=== PATIENT | female | born 1985 | race Caucasian/White ===

== ENCOUNTER 2019-05-24 06:25 | Day surgery (SDC) | payer MEDICAID ==
[2019-05-21 16:14] LABS: BASOPHILS # (AUTO) 0.2 X10'3 (0-0.2); BASOPHILS % (AUTO) 1.5 % (0-1); EOSINOPHILS # (AUTO) 1.2 X10'3 (0-0.9); EOSINOPHILS % (AUTO) 7.6 % (0-6); LYMPHOCYTES # (AUTO) 4.9 X10'3 (1.1-4.8); LYMPHOCYTES % (AUTO) 30.3 % (21-51); MEAN CORPUSCULAR HEMOGLOBIN 24.2 PG (27.0-31.0); MEAN CORPUSCULAR HGB CONC 31.8 g/dL (33.0-36.5); MEAN CORPUSCULAR VOLUME 76.1 FL (78-98); MEAN PLATELET VOLUME 7.3 FL (7.4-10.4); MONOCYTES # (AUTO) 1.1 X10'3 (0-0.9); MONOCYTES % (AUTO) 6.5 % (2-12); NEUTROPHILS # (AUTO) 8.8 X10'3 (1.8-7.7); NEUTROPHILS % (AUTO) 54.1 % (42-75); PRE OP HEMOGLOBIN 12.7 g/dL (12.0-16.0); PRE OP PLATELET COUNT 436 X10'3 (140-440); RED BLOOD COUNT 5.26 X10'6 (4.20-5.60); RED CELL DISTRIBUTION WIDTH 16.8 % (11.5-14.5)
[2019-05-21 16:26] LABS: ALBUMIN/GLOBULIN RATIO 1.2 (1.1-1.5); ALKALINE PHOSPHATASE 78 IU/L (46-116); BLOOD UREA NITROGEN 8 MG/DL (7-18); BUN/CREATININE RATIO 9.4 (6.6-38.0); CALCIUM 8.6 MG/DL (8.5-10.1); CHLORIDE 106 MMOL/L (99-107); CREATININE 0.85 MG/DL (0.40-0.90); PRE OP ALT 23 U/L (30-65); PRE OP ANION GAP 6 (8-16); PRE OP AST 9 U/L (10-37); PRE OP BILIRUB, TOTAL 0.1 MG/DL (0.0-1.0); PRE OP GLUCOSE 95 MG/DL (70-104); PRE OP SODIUM 140 MMOL/L (135-145); TOTAL CARBON DIOXIDE 28.5 MMOL/L (24-32); TOTAL PROTEIN 7.3 G/DL (6.4-8.2); eGFR 77 ML/MIN
[2019-05-21 16:44] LABS: HCG SERUM QL NEGATIVE
[2019-05-24] VITALS (8 sets, daily range): BP systolic 133–155; BP diastolic 73–86
[~2019-05-24] VITALS: Ht 172.7 cm; Wt 95.0 kg
[~2019-05-24 06:25] MED LIST: ALB0.5UD IH; BUDE10.2 INH; DOXY150T3; LORA10TA65 PO; LORA10TA7 PO; albuterol 2.5 MG/3 ML nebule NEB SCH; ceFOXitin 2 GM ADDVANTGE BAG 50 ML IV ONE; famotidine 10mg tablet PO ONE; non-formulary drug (Albuterol Sulfate Nebs* (Proventil Nebs*) 2.5 MG) IH SCH; ringers solution, lacted 1,000 ML IV SCH
[2019-05-24] MEDS ORDERED: BUPIVAcaine/PF 2.5mg/ml (0.25%) 10ml vial ONE (07:06)
[2019-05-24] MEDS ORDERED: ringers solution, lacted 1,000 ML IV SCH (07:59)
[2019-05-24] MEDS ORDERED: meperidine/PF 25mg/ml syringe IV PRN ×3 (08:00)
[2019-05-24] MEDS ORDERED: ondansetron/PF 4mg/2ml inj IV PRN (08:00)
[2019-05-24] MEDS ORDERED: loratadine 10mg tablet PO SCH ×2 (08:00)
[2019-05-24] MEDS ORDERED: ketorolac trometh. 30mg/ml inj. IV ONE (08:00)
[2019-05-24] MEDS ORDERED: budesonide 0.5mg/2ml UD nebule IH SCH (08:00)
[2019-05-24] MEDS ORDERED: proCHLORperazine 10 MG/2 ml inj IV PRN (08:00)
[2019-05-24] MEDS ORDERED: morphine 4 MG/ML inj SYRINge IV PRN ×2 (08:00)
[2019-05-24] MEDS ORDERED: sevoflurane 250ml liquid IH ONE (08:39)
[2019-05-24] MEDS ORDERED: rocuronium 10mg/ml inj IV ONE (08:47)
[2019-05-24] MEDS ORDERED: fentaNYL/PF 50MCG/1 ML 2ML syringe ONE ×2 (08:47→09:18)
[2019-05-24] MEDS ORDERED: midazolam 2 mg/2 ml injection ONE (08:47)
[2019-05-24] MEDS ORDERED: propofol inj 20 ML IV ONE (08:47)
[2019-05-24] MEDS ORDERED: dexamethasone sod phosphate 4mg/ml inj. ONE (09:09)
[2019-05-24] MEDS ORDERED: ondansetron/PF 4mg/2ml inj ONE (09:09)
[2019-05-24] MEDS ORDERED: neostigmine methylsulfate 1 MG/ML 10ml vial ONE (09:27)
[2019-05-24] MEDS ORDERED: BUPIVAcaine/PF 2.5 mg/ml (0.25%) 30ml vial ONE (09:27)
[2019-05-24] MEDS ORDERED: glycopyrrolate 0.2mg/ml inj ONE (09:47)
--- NOTE | 2019-05-24 09:50 | NUR ---
Received from OR via BED , accompanied by Anesthesiologist DR WRIGHT and report given by Anesthesiolgist. PATIENT WAKING UP, DENIES, V/S WNL, NEUROVASCULAR CHECKS INTACT, 20G PIV LUE, SCD ON, DEMABONDED AND PERIPAD WITH SCANT DRAINAGE CDI.
--- NOTE | 2019-05-24 10:50 | NUR ---
PATIENT A&OX4, DENIES PAIN, V/S WNL, NEUROVASCULAR CHECKS INTACT, 20G PIV LUE D/C, SCD OFF, LAP SIGHTS OF ABDOMEN / PERIPAD CDI.. I HAVE REVIEWED D/C INSTRUCTIONS WITH PATIENT AND FAMILY HAVE VERBALIZED UNDERSTANDING.PATIENT WAS D/C HOME WITH ALL BELONGINGS AND FAMILY GAVE TRANSPORT HOME.
== END 2019-05-24 10:50 | disposition home or self-care (01) ==
LOC: PAS 06:25
PROVIDERS: ATTEND Obstetrics & Gynecology Obstetrics
DX: Z30.2 Encounter for sterilization (principal); J45.909 Unspecified asthma, uncomplicated; I10 Essential (primary) hypertension; E66.9 Obesity, unspecified; Z68.33 Body mass index [BMI] 33.0-33.9, adult; F17.210 Nicotine dependence, cigarettes, uncomplicated; Z98.51 Tubal ligation status; Z90.49 Acquired absence of other specified parts of digestive tract; Z98.890 Other specified postprocedural states; Z79.899 Other long term (current) drug therapy; Z87.442 Personal history of urinary calculi
CPT/HCPCS: 36415; 58670; 71046; 80053; 82948; 84703; 85025; 86885; 86900; 86901; J0694; J1100; J1885; J2250; J2405; J2704; J2710; J3010; J3490; J7120; A4618; A7000; J7626

== ENCOUNTER 2023-01-31 06:37 | Emergency (ER) | payer MEDICAID ==
[~2023-01-31] VITALS: Ht 170.2 cm; Wt 90.9 kg
[~2023-01-31 06:37] MED LIST changes: -DOXY150T3; -LORA10TA65 PO; -albuterol 2.5 MG/3 ML nebule NEB SCH; -ceFOXitin 2 GM ADDVANTGE BAG 50 ML IV ONE; -famotidine 10mg tablet PO ONE; -non-formulary drug (Albuterol Sulfate Nebs* (Proventil Nebs*) 2.5 MG) IH SCH; -ringers solution, lacted 1,000 ML IV SCH
[2023-01-31] MEDS ORDERED: ipratropium/albuterol 3ml nebule NEB STA (06:40)
[2023-01-31 06:41] VITALS: TEMP 98.8
[2023-01-31] MEDS ORDERED: methylPREDNISolone sod succ 125mg/2ml vial IV STA (06:48)
[2023-01-31] MEDS ORDERED: normal saline 1000ML IV soln IVB ONE (06:50)
[2023-01-31 07:02] VITALS: PULSE 118; RESP 20; O2SAT 96
[2023-01-31 07:11] VITALS: PULSE 109; RESP 20; O2SAT 99
[2023-01-31] MEDS ORDERED: AZIT-164 PO (10:16)
[2023-01-31] MEDS ORDERED: PRED20TA PO (10:16)
[2023-01-31] MEDS ORDERED: ALBU8HFA PO (10:16)
--- NOTE | 2023-01-31 10:55 | NUR ---
PT PREPARING FOR DISCHARGE. PT STATES SHE HAS HER INHALER AT HOME. PT STATES THAT SHE IS FEELING MUCH BETTER. RN ADVISED PT IF HER SX RETURN TO COME BACK TO ED OR CALL 911 AND SHE VERBALIZED UNDERSTANDING.
[2023-01-31 11:01] VITALS: BP 147/88; PULSE 97; RESP 14; O2SAT 94
== END 2023-01-31 11:12 | disposition home or self-care (01) ==
LOC: ER 06:37
DX: J45.901 Unspecified asthma with (acute) exacerbation (principal); I10 Essential (primary) hypertension; M19.90 Unspecified osteoarthritis, unspecified site; Z88.5 Allergy status to narcotic agent; Z79.899 Other long term (current) drug therapy; Z90.49 Acquired absence of other specified parts of digestive tract; Z98.51 Tubal ligation status
CPT/HCPCS: 71045; 94640; 96361; 96374; 99283; J2930; J7030; 94760; A4615

== ENCOUNTER 2023-04-16 11:28 | Emergency (ER) | payer MEDICAID ==
[~2023-04-16] VITALS: Ht 172.7 cm; Wt 91.6 kg
[2023-04-16 12:02] VITALS: BP 139/87; TEMP 98.3
[2023-04-16] MEDS ORDERED: dexamethasone sod phosphate 10mg/ml inj IV STA (12:26)
[2023-04-16] MEDS ORDERED: ketorolac trometh. 30mg/ml inj. IV ONE (12:30)
[2023-04-16] MEDS ORDERED: normal saline 1000ML IV soln IVB ONE (12:30)
[2023-04-16] MEDS ORDERED: probenecid 500mg tablet PO ONE (12:30)
[2023-04-16] MEDS ORDERED: ampicillin/sulbac 3gm/NS 100ml 100 ML IV SCH (12:32)
[2023-04-16 13:15] LABS: BASOPHILS # (AUTO) 0.1 X10'3 (0-0.2); BASOPHILS % (AUTO) 0.9 % (0-1); EOSINOPHILS # (AUTO) 0.2 X10'3 (0-0.9); EOSINOPHILS % (AUTO) 1.5 % (0-6); HEMOGLOBIN 14.2 g/dl (12.0-16.0); LYMPHOCYTES # (AUTO) 3.4 X10'3 (1.1-4.8); LYMPHOCYTES % (AUTO) 22.7 % (21-51); MEAN CORPUSCULAR HEMOGLOBIN 27.9 PG (27.0-31.0); MEAN CORPUSCULAR VOLUME 84.5 FL (78-98); MEAN PLATELET VOLUME 6.9 FL (7.4-10.4); MONOCYTES # (AUTO) 1.2 X10'3 (0-0.9); MONOCYTES % (AUTO) 8.2 % (2-12); NEUTROPHILS % (AUTO) 66.7 % (42-75); PLATELET COUNT 428 X10'3 (140-440); RED BLOOD COUNT 5.09 X10'6 (4.20-5.60); RED CELL DISTRIBUTION WIDTH 13.4 % (11.5-14.5)
[2023-04-16 13:25] LABS: ALANINE AMINOTRANSFERASE 18 U/L (12-78); ALKALINE PHOSPHATASE 67 IU/L (46-116); ANION GAP 8 (8-16); ASPARTATE AMINO TRANSFERASE 9 U/L (10-37); BILIRUBIN,TOTAL 0.5 MG/DL (0.1-1.0); BLOOD UREA NITROGEN 10 MG/DL (7-18); BUN/CREATININE RATIO 11.2 (10.0-20.0); CALCIUM 9.8 MG/DL (8.5-10.1); CHLORIDE 99 MMOL/L (99-107); CREATININE 0.89 MG/DL (0.40-0.90); GLUCOSE 98 MG/DL (70-104); SODIUM 135 MMOL/L (135-145); TOTAL CARBON DIOXIDE 28.1 MMOL/L (24-32); TOTAL PROTEIN 8.2 G/DL (6.4-8.2); eCRCL 87 ML/MIN; eGFR 71 ML/MIN
[2023-04-16] MEDS ORDERED: iohexol 300mg/ml 100ml inj. ONE (13:28)
[2023-04-16 15:29] VITALS: PULSE 83; RESP 16; O2SAT 96
--- NOTE | 2023-04-16 16:51 | NUR ---
AMA form signed
[2023-04-17] MEDS ORDERED: TRAM50TA2 PO (11:49)
== END 2023-04-16 16:48 | disposition left against medical advice (07) ==
LOC: ER 11:29
DX: K11.3 Abscess of salivary gland (principal); R59.0 Localized enlarged lymph nodes; I10 Essential (primary) hypertension; J45.909 Unspecified asthma, uncomplicated; M19.90 Unspecified osteoarthritis, unspecified site; F17.210 Nicotine dependence, cigarettes, uncomplicated; Z90.49 Acquired absence of other specified parts of digestive tract; Z98.51 Tubal ligation status; Z72.89 Other problems related to lifestyle; Z56.0 Unemployment, unspecified; Z79.899 Other long term (current) drug therapy; Z88.8 Allergy status to other drugs, medicaments and biological substances
CPT/HCPCS: 36415; 70491; 80053; 84145; 85025; 96365; 96375; 99285; J0295; J1100; J1885; J3490; J7030; Q9967

== ENCOUNTER 2023-05-07 09:38 | Emergency (ER) | payer MEDICAID ==
[~2023-05-07] VITALS: Ht 172.7 cm; Wt 91.6 kg
[~2023-05-07 09:38] MED LIST changes: +TRAM50TA2 PO
[2023-05-07] MEDS ORDERED: methylPREDNISolone sod succ 125mg/2ml vial IV ONE (10:15)
[2023-05-07] MEDS ORDERED: ipratropium 0.5 MG/2.5ML nebule IH ONE (10:15)
[2023-05-07] MEDS ORDERED: albuterol 2.5 MG/3 ML nebule CONTNEB PRN (10:15)
[2023-05-07] MEDS ORDERED: normal saline 1000ML IV soln IVB ONE (10:15)
[2023-05-07 10:28] VITALS: PULSE 98; RESP 22; O2SAT 95
[2023-05-07 12:13] VITALS: PULSE 89; RESP 18; O2SAT 99
[2023-05-07] MEDS ORDERED: PRED20TA PO (14:07)
[2023-05-07 14:18] VITALS: BP 132/78; RESP 14; TEMP 97.8; O2SAT 96
== END 2023-05-07 14:24 | disposition home or self-care (01) ==
LOC: ER 09:39
DX: J45.901 Unspecified asthma with (acute) exacerbation (principal); I10 Essential (primary) hypertension; F17.200 Nicotine dependence, unspecified, uncomplicated; Z88.8 Allergy status to other drugs, medicaments and biological substances; Z79.899 Other long term (current) drug therapy
CPT/HCPCS: 94644; 94645; 96361; 96374; 99285; J2930; J7030; A4615; A7015

== ENCOUNTER → 2023-12-27 | Emergency (ER) | payer MEDICAID, OTHER ==
[~2023-12-27] VITALS: Ht 172.7 cm; Wt 95.6 kg
[~2023-12-27] MED LIST changes: +METH-798 PO; -TRAM50TA2 PO
[2023-12-27 10:42] VITALS: BP 151/79; PULSE 66; RESP 18; O2SAT 98
[2023-12-27 12:03] VITALS: TEMP 98.3
== END | disposition home or self-care (01) ==
LOC: ER 10:26
DX: S39.012A Strain of muscle, fascia and tendon of lower back, initial encounter (principal); I10 Essential (primary) hypertension; J45.909 Unspecified asthma, uncomplicated; M19.90 Unspecified osteoarthritis, unspecified site; Z88.1 Allergy status to other antibiotic agents; Z79.899 Other long term (current) drug therapy; Z98.51 Tubal ligation status; X50.0XXA Overexertion from strenuous movement or load, initial encounter; Y93.89 Activity, other specified; Y92.89 Other specified places as the place of occurrence of the external cause; Y99.8 Other external cause status
CPT/HCPCS: 72100; 99283

== ENCOUNTER 2024-04-09 08:18 | Emergency (ER) | payer MEDICAID, OTHER ==
[~2024-04-09] VITALS: Ht 172.7 cm; Wt 98.2 kg
[2024-04-09] MEDS: predniSONE 20 mg tablet PO ONE (08:51)
[2024-04-09] MEDS: ipratropium/albuterol 3ml nebule NEB ONE (08:59)
[2024-04-09] MEDS: albuterol 2.5 MG/3 ML nebule NEB ONE (08:59)
[2024-04-09 10:27] VITALS: BP 146/67
[2024-04-09 10:31] VITALS: PULSE 79; PULSE 84; PULSE 89; RESP 16; RESP 17; O2SAT 97; O2SAT 99
[2024-04-09] MEDS ORDERED: PRED50TA PO (10:31)
[2024-04-09] MEDS ORDERED: IPRA3AMP31 NEB (10:31)
== END 2024-04-09 10:41 | disposition home or self-care (01) ==
LOC: ER 08:18
DX: J45.901 Unspecified asthma with (acute) exacerbation (principal); I10 Essential (primary) hypertension; M19.90 Unspecified osteoarthritis, unspecified site; Z98.51 Tubal ligation status; Z90.49 Acquired absence of other specified parts of digestive tract; Z56.0 Unemployment, unspecified; Z72.89 Other problems related to lifestyle; Z88.1 Allergy status to other antibiotic agents; Z79.899 Other long term (current) drug therapy
CPT/HCPCS: 94640; 99284; J7512; 94760

== ENCOUNTER 2024-04-22 17:31 | Emergency (ER) | payer MEDICAID ==
[~2024-04-22] VITALS: Ht 172.7 cm; Wt 100.0 kg
[~2024-04-22 17:31] MED LIST changes: +IPRA3AMP31 NEB; +PRED50TA PO
[2024-04-22] MEDS: dexamethasone sod phosphate 10mg/ml inj PO STA (18:03)
[2024-04-22] MEDS: ipratropium/albuterol 3ml nebule NEB STA ×2 (18:05→18:53)
[2024-04-22 18:06] VITALS: PULSE 93; PULSE 94; RESP 18; RESP 19; O2SAT 92; O2SAT 99
[2024-04-22] MEDS ORDERED: PRED20TA PO (18:10)
[2024-04-22 18:54] VITALS: PULSE 95; RESP 20; O2SAT 96
[2024-04-22 19:07] VITALS: PULSE 95; RESP 20; O2SAT 97
[2024-04-22 19:35] VITALS: BP 181/90; PULSE 92; RESP 22; TEMP 99.1; O2SAT 98
== END 2024-04-22 19:38 | disposition home or self-care (01) ==
LOC: ER 17:31
DX: J45.901 Unspecified asthma with (acute) exacerbation (principal); I10 Essential (primary) hypertension; Z88.1 Allergy status to other antibiotic agents; Z88.8 Allergy status to other drugs, medicaments and biological substances; Z90.49 Acquired absence of other specified parts of digestive tract; Z98.51 Tubal ligation status
CPT/HCPCS: 94640; 99291; J1100; 94760

== ENCOUNTER 2024-05-09 08:18 | Emergency (ER) | payer MEDICAID ==
[~2024-05-09] VITALS: Ht 172.7 cm; Wt 96.6 kg
[2024-05-09] VITALS (7 sets, daily range): BP systolic 138; BP diastolic 78; PULSE 65–82; RESP 14–18; TEMP 99; O2SAT 99–100
[2024-05-09] MEDS: dexamethasone 4mg tablet PO ONE (08:42)
[2024-05-09] MEDS: albuterol 2.5 MG/3 ML nebule NEB ONE ×2 (08:53→09:54)
[2024-05-09] MEDS ORDERED: BUDE10.2 INH (09:50)
[2024-05-09] MEDS ORDERED: ALBU8HFA INH (09:50)
[2024-05-09] MEDS ORDERED: PRED20TA PO (09:50)
[2024-05-09] MEDS: albuterol 2.5 MG/3 ML nebule ONE ×2 (10:14)
[2024-05-09] MEDS ORDERED: albuterol 2.5 MG/3 ML nebule CONTNEB PRN (10:40)
[2024-05-09] MEDS ORDERED: albuterol 2.5 MG/3 ML nebule NEB ONE (11:15)
== END 2024-05-09 13:31 | disposition home or self-care (01) ==
LOC: ER 08:18
DX: J45.901 Unspecified asthma with (acute) exacerbation (principal); J06.9 Acute upper respiratory infection, unspecified; I10 Essential (primary) hypertension; M19.90 Unspecified osteoarthritis, unspecified site; Z88.1 Allergy status to other antibiotic agents; Z79.899 Other long term (current) drug therapy; Z90.49 Acquired absence of other specified parts of digestive tract; Z98.51 Tubal ligation status
CPT/HCPCS: 71045; 94640; 94760; 99284

== ENCOUNTER 2024-10-15 08:12 | Emergency (ER) | payer MEDICAID ==
[~2024-10-15] VITALS: Ht 172.7 cm; Wt 93.2 kg
[2024-10-15] MEDS: predniSONE 20 mg tablet PO ONE (09:02)
[2024-10-15] MEDS: albuterol 2.5 MG/3 ML nebule NEB ONE (09:05)
[2024-10-15] MEDS: ipratropium 0.5 MG/2.5ML nebule IH ONE (09:05)
--- NOTE | 2024-10-15 09:05 | RADIOLOGY REPORT ---
CHEST RADIOGRAPH Indication: PNA Technique: Single frontal view of the chest was obtained COMPARISON: DI CHEST,SINGLE VIEW on DOS: 05/09/24, DI CHEST,SINGLE VIEW on DOS: 01/31/23 FINDINGS: Lines and Tubes: None Lungs: Clear Pleura: No effusion. No pneumothorax. Cardiomediastinal contours: Unremarkable Bones: Unremarkable IMPRESSION: No acute disease.
[2024-10-15 09:08] VITALS: PULSE 77; RESP 16; O2SAT 99
[2024-10-15 09:27] VITALS: PULSE 93; RESP 14; O2SAT 100
--- NOTE | 2024-10-15 09:42 | Physician Documentation ---
History of Present Illness ~ Chief Complaint: Asthma Stated Complaint: ASTHMA Time Seen by MD: 08:39 Primary Medical Doctor: RABIA SHEA Mode of Arrival: POV, Ambulatory HPI 39-year-old female who presents to the emergency department complaining of asthma exacerbation, patient has history of as in his mean using her inhalers at home without significant improvement. Timing/Duration: days Severity: moderate Activities at Onset: light exertion Risk Factors: none History Of: asthma, currently on inhaled B2, currently on steroids; Denies: CHF, not using steroids Prior Episode/Exposure: occasional episodes Modifiying Factors: Improves with: exertion, coughing, inhaler, rest Associated Symptoms: Denies: fever Discomfort Quality/Severity: moderate Cough Severity: Reports: mild Medication Reconciliation Allergies: Coded Allergies: doxycycline (Verified Adverse Reaction, Unknown, diarrhea, 10/15/24) Uncoded Allergies: HYDROCORTISONE SUPPOSITORY (Adverse Reaction, Unknown, 03/04/14) HEADACHE, STIFF NECK Scheduled Albuterol Sulfate Nebs* (Proventil Nebs*), 2.5 MG IH Q6H, (Reported) Budesonide/Formoterol Fumarate (Symbicort 160-4.5 Mcg Inhaler), 2 PUFFS INH Q12H Ipratropium/Albuterol Sulfate (Duoneb 2.5-0.5 Mg/3 Ml Soln), 1 VIAL NEB Q12H Loratadine (Loratadine), 1 TAB PO DAILY, (Reported) Methocarbamol (Methocarbamol), 1 TAB PO Q8H Prednisone (Prednisone), 1 TAB PO DAILY Past Medical History Past Medical History: Hypertension, Asthma, *HEMATOLOGY*, Arthritis Past Surgical History: cholecystectomy, tubal ligation Alcohol Use: Occasionally Drug Use: none Lives with: Mother Lives In: Home 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, 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 Review of Systems All Other Systems at this time: Reviewed and Negative Constitutional: Reports: see HPI; Denies: fever Respiratory: Reports: see HPI, cough, shortness of breath, SOB with exertion, SOB at rest, wheezing Physical Exam Vital Signs: RN Vital Signs have been reviewed: Yes, Temperature: 98.6, Source: Oral, Heart Rate: 93, Respiratory Rate: 14, BP: 158/90, Pulse Oximetry: 100, Weight: 93.180 Oxygen Flow Rate: 0 Pulse Oximetry Reflects: adequate oxygenation General Appearance: alert, mild distress Neck: normal inspection; No: tender EENT: normal ENT inspection, moist mucous membranes Respiratory: lungs clear, wheezing; No: normal breath sounds, no respiratory distress Chest: no accessory muscle use Cardiovascular: normal peripheral pulses, regular rate, rhythm, no edema, no JVD Gastrointestinal: normal palpation, non-tender, bowels sounds present 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 (10/15/24 08:45) Prednisone Tablet (Prednisone Tablet) (10/15/24 08:45) Chest,Single View (10/15/24 08:48) Medications Received in ER Medications (Trade) Dose Ordered Sig/Cynthia Route PRN Reason Start Time Stop Time Status Last Admin Dose Admin (Atrovent nebule) 0.5 mg ONCE ONCE IH 10/15/24 08:45 10/15/24 08:48 DC 10/15/24 09:05 0.5 MG (Proventil 2.5 MG/3ML nebule) 5 mg ONCE ONCE NEB 10/15/24 08:45 10/15/24 08:48 DC 10/15/24 09:05 5 MG (predniSONE tablet) 60 mg ONCE ONCE PO 10/15/24 08:45 10/15/24 08:48 DC 10/15/24 09:02 60 MG Vital Signs 10/15/24 10/15/24 10/15/24 10/15/24 08:14 09:03 09:03 09:08 Temp 98.6 98.6 Pulse 95 89 77 Resp 25 28 26 16 B/P (MAP) 152/90 158/90 (112) Pulse Ox 96 98 99 O2 Delivery Room Air* O2 Flow Rate 0 0 FiO2 21 10/15/24 09:27 Pulse 93 Resp 14 Pulse Ox 100 O2 Delivery Room Air* O2 Flow Rate 0 FiO2 21 Re-Evaluation Re-evaluation : Progress 9:45 a.m. patient re-evaluated wheezing has improved significantly she is sitting up in the bed satting at 99% on room air, discussed home care and discharge we will add steroids for the next four days, in addition to Atrovent to be use with a home nebulizer, follow up with her primary care provider and adjudication specialist who his managing her asthma. EKG/XRAY/CT/US/VASC/MRI Chest X-Ray : Additional Comments [facility] [address] [facility], [facility] [id number] DIAGNOSTIC RADIOLOGY Patient: YURIDIA NICOLE Medical Record: [id number] [facility] : 1985, Age: 39 Sex: Female Location: ER Patient Status: [facility] ER Service Date/Time: 10/15/24847 Ordering Physician: CARRIE ROBBINS DO Exam: CHEST,SINGLE VIEW CHEST RADIOGRAPH Indication: PNA Technique: Single frontal view of the chest was obtained COMPARISON: DI CHEST,SINGLE VIEW on DOS: 05/09/24, DI CHEST,SINGLE VIEW on DOS: 01/31/23 FINDINGS: Lines and Tubes: None Lungs: Clear Pleura: No effusion. No pneumothorax. Cardiomediastinal contours: Unremarkable Bones: Unremarkable IMPRESSION: No acute disease. Electronically Signed by:WILLEM NOONAN MD Date & Time: 10/15/24902 Dictated by: WILLEM NOONAN MD Dictation date and time: 10/15/24902 Primary Care Provider: NO PRIMARY CARE PROVIDER cc: CARRIE ROBBINS DO ~ Medical Decision Making Findings Differential diagnosis for shortness of breath include asthma exacerbation, COPD, pneumonia, airway obstruction, heart failure, allergic rhinitis URI amongst others, patient was given a DuoNeb treatment and steroids significant improvement in the emergency department, has a discharged home with prednisone Atrovent who is with a regular medications and follow up with her primary care provider in adjudication specialist rate Differential Dx:Considerations: Include: asthma, bronchitis, CHF, COPD, dys rhythmia, pulmonary embolism, respiratory distress, respiratory failure Departure Disposition: 01 HOME / SELF CARE / HOMELESS Impression: Primary Impression: Acute asthma Condition: Stable Discharge Instructions: Asthma Attack Prevention, Adult, Bronchospasm, Adult, [id number] Departure Forms: Excuse form Work or School Excused From: Work Excuse beginning now through the following date: October 15, 2024 May Return but still avoid physical Activity from now until: October 15, 2024 May Return to full physical activity as of: October 16, 2024 Referrals: NO PRIMARY CARE PROVIDER (PCP) Prescriptions Prednisone (Prednisone) 50 Mg Tablet 1 TAB PO DAILY for 5 Days, #5 TAB 0 Refills Prov: CARRIE ROBBINS DO 10/15/24 Ipratropium [place] (Atrovent Neb) 0.2 Mg/Ml (0.02 %) Solution 1 VIAL NEB Q6H for 30 Days, #300 ML 0 Refills Prov: CARRIE ROBBINS DO 10/15/24 Education Educated: Patient Educated regarding: diagnosis, treatment, prognosis Signature Scribe Signature: none Attestation: Dictated by myself CARRIE ROBBINS DO October 15, 2024 09:42
[2024-10-15] MEDS ORDERED: ATR0.5NEB NEB (09:51)
[2024-10-15] MEDS ORDERED: PRED50TA PO (09:51)
[2024-10-15 10:01] VITALS: BP 164/94; PULSE 81; RESP 16; TEMP 98; O2SAT 98
== END 2024-10-15 10:02 | disposition home or self-care (01) ==
LOC: ER 08:12
DX: J45.901 Unspecified asthma with (acute) exacerbation (principal); I10 Essential (primary) hypertension; M19.90 Unspecified osteoarthritis, unspecified site; Z88.1 Allergy status to other antibiotic agents; Z90.49 Acquired absence of other specified parts of digestive tract; Z98.51 Tubal ligation status; Z56.0 Unemployment, unspecified; Z72.89 Other problems related to lifestyle
CPT/HCPCS: 71045; 94640; 99283; J7512; 94760